=== PATIENT | male | born 1975 | race Caucasian/White ===

== ENCOUNTER 2021-04-26 21:00 | Emergency (ER) | payer BC ==
[2021-04-26] MEDS ORDERED: Ondansetron 4 MG Tab.DIS PO ONE (21:43)
--- NOTE | 2021-04-26 21:50 | EDM.PDOC ---
ED HPI GENERAL MEDICAL PROBLEM - General Chief Complaint: Neurological Problem Stated Complaint: VERTIGO SYMPTOMS/VOMITING/CONFUSION Time Seen by Provider: 04/26/21 21:13 Source of Information: Reports: Patient, Family () History Limitations: Reports: No Limitations - History of Present Illness INITIAL COMMENTS - FREE TEXT/NARRATIVE: Mr. Garcia is a very pleasant 46-year-old gentleman who now presents to the ED stating that he developed sudden-onset vertigo, diaphoresis, and nausea and vomiting around 19:15 this evening. He states that his symptoms are only present if he moves his head, particularly to the right or to the right and upward, and are not present if he remains still. He states that he has had numerous episodes of vertigo ever since he suffered a traumatic head injury in 2012. He states that his vertigo was fairly frequent initially, but has become less frequent as he has gotten older, with the last episode being about a year ago. He states that his current symptoms are similar to prior episodes, although more severe in severity. He reports chronic right ear tinnitus, and he also reports that he is deaf, or nearly deaf, in his right ear, following the traumatic head injury. He denies having a headache. He denies having any neurologic symptoms, such as tingling, numbness, or weakness. He states that he has not taken any [id number] home remedies since the onset of his symptoms. At triage, the patient's initial BP was found to be mildly elevated at 143/94, otherwise, he was hemodynamically stable, afebrile, saturating 100% on room air. He appears to be comfortable, in no acute distress. Prior to this evening, the patient denies having a recent fever, chills, sore throat, ear pain, nasal or sinus congestion, cough, dyspnea, chest pain, palpitations, nausea, vomiting, constipation, diarrhea, abdominal pain, urinary symptoms, recent weight gain or weight loss, recent bloody bowel movements or black bowel movements, recent joint aches, headaches, or rashes. The patient's PCP is Dr. Mik Stiles. He has received 2 COVID vaccinations + an influenza vaccination this season. - Related Data Allergies Allergy/AdvReac Type Severity Reaction Status Date / Time Penicillins Allergy Rash Verified 04/26/21 21:16 Home Meds: Home Meds Meclizine [Antivert] 1 tab PO Q6H PRN #40 tab 04/26/21 [Rx] Ondansetron [Zofran ODT] 1 tab PO Q8H PRN #20 tab.dis 04/26/21 [Rx] Venlafaxine [Effexor XR] 75 mg PO DAILY 04/26/21 [History] amLODIPine [Norvasc] 5 mg PO DAILY 04/26/21 [History] Past Medical History Cardiovascular History: Reports: Hypertension Neurological History: Reports: Head Trauma Psychiatric History: Reports: Anxiety, Depression - Past Surgical History HEENT Surgical History: Reports: Oral Surgery (dental extractions) Social & Family History - Tobacco Use Tobacco Use Status *Q: Former Tobacco User Tobacco Use Within Last Twelve Months: Cigars (occasional), Smokeless Tobacco (Chews 1/2 can/day) Years of Tobacco use: 23 Packs/Tins Daily: 1 Month/Year Tobacco Last Used: Quit 2015 Tobacco Use Comment: Started smoking 1992 - Caffeine Use Caffeine Use: Reports: Coffee, Soda - Alcohol Use Alcohol Use History: Yes Days Per Week of Alcohol Use: 7 Number of Drinks Per Day: 3 Total Drinks Per Week: 21 Alcohol Use Frequency: Daily - Recreational Drug Use Recreational Drug Use: No - Living Situation & Occupation Living situation: Reports: , with Spouse Occupation: Employed ([employer]) ED ROS GENERAL - Review of Systems Review Of Systems: Comprehensive ROS is negative, except as noted in HPI. ED EXAM, DIZZINESS - Physical Exam Exam: See Below Exam Limited By: No Limitations General Appearance: Alert, WD/WN, No Apparent Distress Eye Exam: Bilateral Eye: EOMI, Normal Inspection, PERRL Ears: Normal External Exam, Normal Canal, Normal TMs, Other (Deaf right ear) Nose: Normal Inspection, Normal Mucosa, No Blood Throat/Mouth: Normal Inspection, Normal Lips, Normal Teeth, Normal Gums, Normal Oropharynx, Normal Voice, No Airway Compromise Head Exam: Atraumatic, Normocephalic Vertigo: worsens with head to R, reproducible Neck: Normal Inspection, Supple, Non-Tender, Full Range of Motion. No: Lymphadenopathy (L), Lymphadenopathy (R) Respiratory/Chest: No Respiratory Distress, Lungs Clear, Normal Breath Sounds, No Accessory Muscle Use Cardiovascular: Normal Peripheral Pulses, Regular Rate, Rhythm, No Edema, No Gallop, No JVD, No Murmur, No Rub GI/Abdominal: Normal Bowel Sounds, Soft, Non-Tender, No Organomegaly, No Distention, No Abnormal Bruit, No Mass Neurological: Alert, CN II-XII Intact, No Motor/Sensory Deficits, Oriented x 3 Extremities: Normal Inspection, Normal Range of Motion, No Pedal Edema, Normal Capillary Refill Psychiatric: Normal Affect Skin Exam: Warm, Dry, Intact, Normal Color, No Rash #1 Interpretation EKG Date: 04/26/21 Time: 21:13 Rhythm: NSR Rate (Beats/Min): 76 [place]: Normal P-Wave: Present QRS: RBBB (incomplete) ST-T: Normal QT: Normal Comparison: NA - No Prior EKG Course - Vital Signs Last Recorded V/S: Last Vital Signs Temp 36.7 C 04/26/21 21:15 Pulse 75 04/26/21 21:15 Resp 18 04/26/21 21:15 BP 143/94 H 04/26/21 21:15 Pulse Ox 100 04/26/21 21:15 - Orders/Labs/Meds Meds: Medications Discontinued Medications Generic Name Dose Route Start Last Admin Trade Name Danielle PRN Reason Stop Dose Admin Meclizine HCl 25 mg 04/26/21 21:42 04/26/21 21:56 Meclizine 25 Mg Tab.Chew PO 04/26/21 21:43 25 mg ONETIME STA Administration Ondansetron HCl 4 mg 04/26/21 21:43 04/26/21 21:56 Ondansetron 4 Mg Tab.Dis PO 04/26/21 21:44 4 mg ONETIME ONE Administration - Re-Assessments/Exams Free Text/Narrative Re-Assessment/Exam: 04/26/21 21:43 As above, the patient has recurrent vertigo, likely related to a prior head injury in 2012. His current symptoms, while more severe, are similar to prior episodes, including induction of symptoms only with movement of his head. The patient appears to be suffering from recurrent BPPV. For today's purposes, the patient will be treated with 25 mg of oral meclizine and 4 mg of Zofran ODT, and I will submit prescriptions for the same. I will also refer the patient to PT for canalith repositioning maneuvers. The patient declined an offer for a note to be off work, but is aware that he is not to drive or operate heavy machinery until his symptoms have resolved. Departure - Departure Time of Disposition: 21:44 Disposition: Home, Self-Care 01 Condition: Good Clinical Impression: BPPV (benign paroxysmal positional vertigo) - Discharge Information *PRESCRIPTION DRUG MONITORING PROGRAM REVIEWED*: Not Applicable *COPY OF PRESCRIPTION DRUG MONITORING REPORT IN PATIENT CINTHIA: Not Applicable Prescriptions: Meclizine [Antivert] 1 tab PO Q6H PRN #40 tab PRN Reason: Dizziness Ondansetron [Zofran ODT] 1 tab PO Q8H PRN #20 tab.dis PRN Reason: Nausea/Vomiting Instructions: Vertigo, [id number] Referrals: Mik Stiles MD [Physician] - Forms: ED Department Discharge Additional Instructions: You were seen in the emergency room after developing sudden-onset vertigo with sweatiness, nausea, and vomiting. 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 You have been started on the anti-vertigo medicine meclizine (Antivert) and the antinausea medicine Zofran ODT. Prescriptions for both meclizine and Zofran ODT have been sent to the [facility] pharmacy, located just south and across the [address] from [facility]. Take 1 tablet of meclizine up to every 6 hours, as needed for vertigo. You may dissolve 1 tablet of Zofran ODT on your tongue up to every 8 hours, as needed for nausea/vomiting. As discussed, it is imperative that you not drive or operate heavy machinery until your symptoms have completely resolved. A referral to physical therapy has been submitted. You will be contacted by physical therapy, to arrange for canalith repositioning maneuvers. Any other problems, please do not hesitate to return to the ER. Sepsis Event Note (ED) - Focused Exam Vital Signs: Vital Signs Temp Pulse Resp BP Pulse Ox 04/26/21 21:15 36.7 C 75 18 143/94 H 100
== END 2021-04-26 22:30 | disposition home or self-care (01) ==
LOC: JD.ED 21:00
DX: H81.10 Benign paroxysmal vertigo, unspecified ear (principal); I45.10 Unspecified right bundle-branch block; I10 Essential (primary) hypertension; Z87.891 Personal history of nicotine dependence; Z88.0 Allergy status to penicillin; Z79.899 Other long term (current) drug therapy
CPT/HCPCS: 99283; A9270-GY

== ENCOUNTER 2025-02-23 07:14 | Day surgery (SDC) | payer BC ==
[~2025-02-23 07:14] MED LIST: Sodium Chloride 0.9% 10 ML Syringe FLUSH PRN; Sodium Chloride 0.9% 10 ML Syringe FLUSH SCH
[2025-02-23] MEDS: Lactated Ringers 1,000 ML IV SCH (07:35)
[2025-02-23] MEDS ORDERED: Propofol 200 MG/20 ML SDV ONE ×2 (09:17→09:26)
== END 2025-02-23 10:30 | disposition home or self-care (01) ==
LOC: JD.SDS 07:14
PROVIDERS: ATTEND Surgery
DX: Z12.11 Encounter for screening for malignant neoplasm of colon (principal); F17.290 Nicotine dependence, other tobacco product, uncomplicated; Z80.0 Family history of malignant neoplasm of digestive organs; Z88.0 Allergy status to penicillin; Z79.899 Other long term (current) drug therapy
CPT/HCPCS: 45378; J2704; J7120; 00812